=== PATIENT | female | born 1955 | race Caucasian/White ===

== ENCOUNTER → 2017-01-31 | Outpatient (CLI) | payer BC, SELFPAY ==
--- NOTE | 2017-01-31 12:47 | CT ---
EXAM DESCRIPTION: Head w/wo Contrast CLINICAL HISTORY: SYNCOPE AND COLLAPSE COMPARISON: 03/01/2015 TECHNIQUE: Multiple axial images of the head before and after intravenous contrast. This exam was performed according to our departmental dose-optimization program, which includes automated exposure control, adjustment of the mA and/or kV according to patient size and/or use of iterative reconstruction technique. FINDINGS: There is no CT evidence of intracranial hemorrhage, mass effect, or large territory infarction. Mild generalized volume loss is present. Mild patchy supratentorial white matter hypodensities. No abnormal parenchymal or leptomeningeal enhancement. There are no abnormal extra-axial fluid collections. Vascular structures are unremarkable. There is no acute calvarial defect. The visualized paranasal sinuses and the mastoids are clear. IMPRESSION: 1. No CT evidence of an acute intracranial abnormality. If symptoms persist, consider follow-up MRI. 2. Mild senescent changes. Electronically signed by: Collin Baker MD 01/31/2017 12:45 PM CDT
== END | disposition home or self-care (01) ==
LOC: CT 08:13
PROVIDERS: ATTEND Family Medicine
DX: R55 Syncope and collapse (principal)

== ENCOUNTER → 2017-03-25 | Outpatient (CLI) | payer BC | END | disposition home or self-care (01) | LOC: LAB.O 10:19 | PROVIDERS: ATTEND Internal Medicine Interventional Cardiology | DX: R94.39 Abnormal result of other cardiovascular function study (principal); R55 Syncope and collapse; Z01.810 Encounter for preprocedural cardiovascular examination; Z01.812 Encounter for preprocedural laboratory examination ==

== ENCOUNTER → 2018-03-07 | Outpatient (CLI) | payer BC, MEDICARE ==
--- NOTE | 2018-03-08 08:35 | MRI ---
EXAM DESCRIPTION: Lumbar Spine w/o Contrast : Magnetic Resonance Imaging. CLINICAL HISTORY: CHRONIC LOW BACK PAIN COMPARISON: MRI lumbar spine 10/05/2012. TECHNIQUE: Multiplanar, multiple standard sequences, non contrast MRI, lumbar spine. FINDINGS: L5-S1: Desiccation disc with anterior disc space loss. Posterior annular fissures and midline 3 mm bulge. New since the prior study. Minimal facet arthrosis bilaterally. Mild canal narrowing. Trace anterolisthesis. Bilateral foramina are patent. L4-5: Disc desiccation anterior disc bulging and disc space narrowing. Posterior midline annular fissure. New since the prior study. No significant bulge. Trace anterolisthesis. Bilateral facet arthrosis minimal ligament hypertrophy more on the left. Mild canal narrowing. Mild bilateral foraminal narrowing. Minimal marrow edema in the L4 pedicles. L3-4: Minimal disc desiccation. No bulging. Posterior flavum ligament hypertrophy and minimal facet arthrosis. Mild canal narrowing. Bilateral foramina are patent. Stable since the prior study. L2-3: Minimal disc desiccation. Minimal disc bulges into the base of the right foramen with mild narrowing. Minimal facet arthrosis bilaterally. Canal and left foramen are patent. Stable since the prior study. L1-L2: Minimal disc desiccation. Tiny posterior midline bulge. Disc space maintained. Posterior elements are unremarkable. Canal patent with mild bilateral foraminal narrowing. Stable. T12-L1: Disc desiccation with anterior bulging. Grade 1 retrolisthesis. New since the prior study. Bilateral mild facet arthrosis. Bilateral moderate foraminal narrowing. Canal is patent. Conus terminates at this level. Stable. Anterior bright T1 and T2 signal on the inferior T12 endplate. Stable. Anterior Modic type I endplate reactive changes T11-12 disc bulging and spur formation and disc space loss. Progressed since the prior study. No posterior disc bulge. No scoliosis and lordosis is preserved. Paravertebral soft tissues muscle atrophy paraspinal.. 3.7 x 3.4 cm aneurysm at the level of the L3-4 disc space. 3.4 cm diameter at the L4-5 disc space and 3.1 cm diameter at the L1-2 disc space. Has enlarged since the prior study, almost the entire infrarenal aorta. Normal marrow signal in the remaining vertebral bodies and the posterior elements. Vertebral bodies are not compressed at any level. IMPRESSION: 1. Posterior annular fissures and bulge of the L5-S1 disc new since the prior study. No canal or foraminal stenosis. Trace anterolisthesis is stable. 2. Posterior midline annular fissure L4-5 no new since the prior study. Trace anterolisthesis stable. No canal or foraminal stenosis. 3. Grade 1 retrolisthesis T12-L1 has progressed since the prior study. Anterior Modic type I spondylosis at T11-12 has progressed since the prior study. No canal or foraminal stenosis at any level. Stable hemangioma inferior anterior T12 endplate. Electronically signed by: Christiano Cedeño MD 03/08/2018 8:34 AM CDT
== END ==
LOC: MRI 11:29
PROVIDERS: ATTEND Family Medicine
DX: M51.86 Other intervertebral disc disorders, lumbar region (principal); D18.09 Hemangioma of other sites

== ENCOUNTER → 2018-03-29 | Outpatient (CLI) | payer BC, MEDICARE ==
--- NOTE | 2018-03-29 15:37 | US ---
EXAM DESCRIPTION: Aorta CLINICAL HISTORY: 63 years Female, AAA COMPARISON: None. TECHNIQUE: Multiple transverse and longitudinal sonographic images of the abdominal aorta were obtained. FINDINGS: The proximal aorta measures 3.8 cm in greatest dimension. The mid aorta measures 2.6 cm in greatest dimension on the distal aorta measures 3.8 cm in greatest dimension. Bilateral iliac arteries are normal in size and measure 1.1 cm each. IMPRESSION: Abdominal aortic aneurysm measuring 3.8 cm in the proximal and distal portions are not 3.6 cm in the midportion. Electronically signed by: Adriana Buckley MD 03/29/2018 3:36 PM CDT
--- NOTE | 2018-03-29 15:39 | US ---
EXAM DESCRIPTION: Pelvic,Non-OB CLINICAL HISTORY: 63 years Female, POST MENOPAUSAL BLEEDING COMPARISON: None. TECHNIQUE: Multiple static transverse and longitudinal sonographic images of the pelvis were obtained. FINDINGS: The uterus is neutral in orientation and measures 7.3 x 4.2 x 5.1 cm. Small calcifications are identified in the endometrium. The endometrial stripe measures 5 mm in thickness. 2.1 x 1.7 x 2.5 cm fibroid is noted in the anterior body. Bilateral ovaries are not visualized. No evidence of free fluid. IMPRESSION: Punctate calcifications in the endometrium which are indeterminate in etiology. 2.1 x 1.7 x 2.5 cm fibroid is noted in the anterior body. Electronically signed by: Adriana Buckley MD 03/29/2018 3:38 PM CDT
--- NOTE | 2018-03-31 15:30 | MAM ---
EXAM DESCRIPTION: 3D Screening BILATERAL : Digital Mammography. CLINICAL HISTORY: 63 years Female SCREENING . No complaints. Remote family history of breast cancer. Childbirth. Postmenopausal. No HRT. COMPARISON: Baseline study at this facility.. No prior reports available. TECHNIQUE: Bilateral CC and MLO projection full-field images, 3-D tomosynthesis digital mammographic technique. CAD not utilized. FINDINGS: The breast parenchymal density pattern is: Scattered areas of fibroglandular density. No skin thickening or nipple retraction. Bilateral solitary microcalcifications. A segment of the inferior left pectoral muscle is partially obscured on the MLO view by wireless pacemaker or other electronic device. Bilateral skin calcifications. No new focal, stellate mass or density, focal asymmetry , and no suspicious microcalcifications bilaterally. IMPRESSION: BI-RADS CATEGORY: 2 - BENIGN FINDINGS. FOLLOW UP: Routine digital bilateral screening, one year interval from March 2018. Written communication explaining the IMPRESSION and follow-up, will be mailed to the patient and referring health care provider. According to the [employer], yearly mammograms are recommended starting at age 40 and continuing as long as a woman is in good health. Any breast change noted on a breast self-exam should be reported promptly to the patient's healthcare provider. Breast MRI is recommended for women with an approximately 20-25% or greater lifetime risk of breast cancer, including women with a strong family history of breast or ovarian cancer and women who have been treated for Hodgkin's disease. A negative mammographic report should not delay tissue diagnosis in patients with significant clinical history or physical findings. Extremely dense breast tissue limits the sensitivity of digital mammography. Electronically signed by: Christiano Cedeño MD 03/31/2018 3:29 PM CDT
== END ==
LOC: US 13:07
PROVIDERS: ATTEND Obstetrics & Gynecology
DX: Z12.31 Encounter for screening mammogram for malignant neoplasm of breast (principal); I71.9 Aortic aneurysm of unspecified site, without rupture; N95.0 Postmenopausal bleeding; D25.9 Leiomyoma of uterus, unspecified

== ENCOUNTER → 2019-01-04 | Outpatient (CLI) | payer BC, MEDICARE ==
--- NOTE | 2019-01-05 08:04 | CT ---
EXAM: Abdomen/Pelvis w/wo Contrast CLINICAL HISTORY: MICROSCOPIC HEMATURIA COMPARISON STUDY: The visible upper abdomen from a CT chest performed March 01, 2015 TECHNICAL: Post contrast images were performed through the abdomen and pelvis. Sagittal and coronal reconstructions were obtained. FINDINGS: The visible portion of the chest is negative. The heart is not enlarged. The liver, spleen, pancreas, adrenal glands, and kidneys enhance appropriately and demonstrate no acute abnormality. The gallbladder is intact and there is no evidence of biliary dilatation. A 12 mm soft tissue density structure medial to the upper pole of the left kidney is of uncertain etiology but is not changed since 2015. Diffuse prominence of the right adrenal gland is unchanged. A low density in the right hepatic lobe was not imaged on the previous CT chest but is probably a cyst. There is a 3 cm left upper pole renal cyst and 2 cm right lower pole renal cyst. There are no urinary calculi on the noncontrast images. There are no enhancing lesions on the postcontrast images. Delayed excretion phase images show contrast in nondilated collecting systems. The urinary bladder as imaged shows no focal abnormality. There is no bowel obstruction or free air. Stool distends the rectum. There is no acute inflammatory process. The abdominal aorta is ectatic. There are focal fusiform dilatations beginning just below the renal arteries. The maximum dimension of the abdominal aorta is 4.2 x 4.4 cm. The IVC and retroperitoneum are negative. Structures within the pelvis are negative. Degenerative changes of the bilateral facets are moderate to severe. IMPRESSION: 1. No acute intra-abdominal/pelvic abnormality. 2. No urinary calculi, hydronephrosis or abnormality to explain hematuria. 3. Bilateral simple renal cysts. 4. 12 mm soft tissue nodular density medial to the left kidney of uncertain significance but unchanged since 2015. 4. Multiple fusiform dilatations of the abdominal aorta with a maximum dimension of 4.4 cm. AAA Size: Follow-up Recommendation (1): 2.6 - 2.9 cm Every 5 years (2) 3.0 - 3.4 cm Every 3 years 3.5 - 3.9 cm Every 12 months 4.0 - 4.4 cm Every 12 months, vasc consult rec 4.5 - 5.4 cm Every 6 months, vasc consult rec >=5.5 cm Referral to vascular surgeon recommended (1)Based upon the Society for Vascular Surgery Guidelines: J Vasc Surg. 2009 Oct;50(4 Suppl):S2-49 (2)For aortas of max chauncey of 2.6-2.9 cm that meet criteria for AAA (>= 1.5 x proximal normal segment) This exam was performed according to our departmental dose-optimization program, which includes automated exposure control, adjustment of the mA and/or kV according to patient size and/or use of iterative reconstruction technique. Electronically signed by: Stefano Gordillo MD 01/05/2019 8:00 AM CDT
== END ==
LOC: CT 09:00
PROVIDERS: ATTEND Family Medicine
DX: R31.21 Asymptomatic microscopic hematuria (principal); N28.1 Cyst of kidney, acquired; M79.89 Other specified soft tissue disorders; I77.811 Abdominal aortic ectasia

== ENCOUNTER → 2019-05-08 | Outpatient (CLI) | payer BC, MEDICARE ==
--- NOTE | 2019-05-08 17:49 | MRI ---
EXAM DESCRIPTION: Brain w/wo Contrast: Magnetic Resonance Imaging. CLINICAL HISTORY: 64 years Female TRANSIENT VISUAL LOSS BILATERAL COMPARISON: None. TECHNIQUE: Multiplanar, high-field MRI, multiple conventional sequences, without and with gadolinium IV contrast. No adverse reactions. Multiple axial diffusion sequences. FINDINGS: Small foci FLAIR and T2-weighted signal in the periventricular white matter and subcortical white matter of the bilateral frontal lobes.. Also in the bilateral fredy of the brainstem, more right than left. Normal signal in the bilateral basal ganglia. No hemorrhage, no cerebral edema, no mass-effect. Normal contrast enhancement. Normal signal in the remainder of the brainstem and bilateral cerebellar hemispheres. No hemorrhage, no cerebral edema, no mass-effect. Normal contrast enhancement. Concordance of the diffusion and non-diffusion sequences with no evidence of acute or subacute infarction. Cortical sulci are slightly prominent bilaterally for patient's age but symmetric. Bilateral ventricles, and other CSF spaces, and the subdural spaces are normally configured. No effacement or displacement. No midline shift. No extra-axial hemorrhage. Normal contrast enhancement. Prominent vessel at the bifurcation of the distal right intracranial ICA to form the A1 segment of the right RAFFAELE and right middle cerebral artery. T2 axial series 701, image 11 Otherwise normal flow signal void in the major vessels of the platinum [place], and the venous sinuses. IACs are symmetric bilaterally. Normal signal in the bilateral mastoid air cells. No mass effect Cerebellopontine angles. Normal contrast enhancement. Pituitary gland occupies most of the sella. Normal contrast enhancement. Base of the cerebellar tonsils is at the level the foramen magnum. Minimal mucoperiosteal thickening in the bilateral paranasal sinuses. The bony calvarium is intact. IMPRESSION: 1. Minimal periventricular white matter signal changes also in the subcortical white matter of the bilateral frontal lobes. This is most likely age-related or could be secondary to cerebral microvascular disease. No hemorrhage or abnormal contrast enhancement. No diffusion restriction. 2. Normal noncontrast MRI diffusion study with no evidence of acute or subacute significant ischemia or infarction. 3. Prominent vessel at the bifurcation of the intracranial right ICA to form the right MCA and RAFFAELE branches. This could represent a aneurysm, approximately 5 mm diameter. Recommend CTA for further evaluation. Not associated with infarction or ischemia, mass effect or hemorrhage. Electronically signed by: Christiano Cedeño MD 05/08/2019 5:47 PM CDT
== END ==
LOC: MRI 09:24
PROVIDERS: ATTEND Family Medicine
DX: H53.123 Transient visual loss, bilateral (principal)

== ENCOUNTER → 2019-06-05 | Outpatient (CLI) | payer BC, MEDICARE ==
--- NOTE | 2019-06-05 11:43 | CT ---
EXAM DESCRIPTION: CTA Head CLINICAL HISTORY: ABNORMAL FINDINGS ON DIAGNOSTIC IMAGING OF SKULL AND HEAD COMPARISON: MRI brain May 08, 2019 TECHNIQUE: Pre and postcontrast CTA images of the head are obtained with coronal and sagittal reconstructed images. Three-D MIP reconstructed images of the arterial vasculature are performed. This exam was performed according to our departmental dose-optimization program, which includes automated exposure control, adjustment of the mA and/or kV according to patient size and/or use of iterative reconstruction technique . FINDINGS: The midline structures are not displaced. Sulci are age appropriate. No evidence of mass, mass effect, hydrocephalus, or acute intracranial hemorrhage. No abnormal extra-axial fluid collections are seen. No abnormal enhancement. Bone windows show no aggressive osseous lesions. Aeration of the right supraclinoid process incidentally noted. Bony dehiscence of the sphenoid contouring of the internal carotid arteries left greater than right is incidentally noted. Small basilar artery is seen with origin of the bilateral posterior cerebral arteries accounting for the abnormal appearing vessels seen on recent MRI. No aneurysm or vascular malformation is seen. Mild calcifications of the supraclinoid internal carotid artery is seen right greater than left. Right vertebral artery is dominant. 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 Small basilar artery is seen. No aneurysm or vascular malformation is seen on CTA of the head. Mild calcific atherosclerotic disease of the supraclinoid internal carotid arteries bilaterally. Electronically signed by: Gianni Mcgowan MD 06/05/2019 11:41 AM CDT
== END ==
LOC: CT 09:00
PROVIDERS: ATTEND Family Medicine
DX: R93.0 Abnormal findings on diagnostic imaging of skull and head, not elsewhere classified (principal); I65.23 Occlusion and stenosis of bilateral carotid arteries

== ENCOUNTER → 2019-10-29 | Outpatient (CLI) | payer BC, MEDICARE | LOC: GMAM 14:39 | PROVIDERS: ATTEND Family Medicine | DX: Z79.899 Other long term (current) drug therapy (principal) ==

== ENCOUNTER → 2020-01-25 | Outpatient (CLI) | payer MEDICARE | LOC: GMAM 11:28 | PROVIDERS: ATTEND Family Medicine | DX: E55.9 Vitamin D deficiency, unspecified (principal); I10 Essential (primary) hypertension; E78.2 Mixed hyperlipidemia ==

== ENCOUNTER → 2020-07-14 | Outpatient (CLI) | payer MEDICARE | LOC: GMAM 14:17 | PROVIDERS: ATTEND Family Medicine | DX: G40.209 Localization-related (focal) (partial) symptomatic epilepsy and epileptic syndromes with complex partial seizures, not intractable, without status epilepticus (principal); E55.9 Vitamin D deficiency, unspecified; I10 Essential (primary) hypertension ==

== ENCOUNTER → 2020-07-18 | Outpatient (CLI) | payer MEDICARE ==
--- NOTE | 2020-07-18 13:00 | US ---
EXAM DESCRIPTION: Aorta: Ultrasound. CLINICAL HISTORY: ABDOMINAL AORTIC ANEURYSM WITHOUT RUPTURE COMPARISON: CT abdomen and pelvis January 2019. Ultrasound aorta March 2018. TECHNIQUE: Transcutaneous scanning: Two-dimensional and Doppler modes. FINDINGS: Abdominal aorta diameter - Proximal: 2.9 x 2.5 cm. Mid: 3.6 x 3.2 cm. Distal: 4.8 x 4.4 cm. Common Iliac diameter - Right: 13.5 mm. Left: 10.6 mm. Other: Atherosclerotic calcifications and thickening on the intimal wall. IMPRESSION: 1. Distal abdominal aorta caliber has increased from 4.4 to 4.8 cm since the prior CT scan examination in January 2019. [facility] Best Practice guidelines: 4.8 cm abdominal aortic aneurysm. Recommend follow-up every 6 months and vascular consultation. Reference: J Am Jacki Radiol 2013;10:789-794. 2. 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 Electronically signed by: Christiano Cedeño MD 07/18/2020 12:59 PM CDT
== END ==
LOC: US 09:00
PROVIDERS: ATTEND Family Medicine
DX: I71.4 Abdominal aortic aneurysm, without rupture (principal); I72.3 Aneurysm of iliac artery